=== PATIENT | female | born 1995 | race Caucasian/White ===

== ENCOUNTER 2017-05-14 19:16 | Emergency (ER) | payer BC ==
[2017-05-14 20:51] VITALS: BP 109/65
--- NOTE | 2017-05-14 21:04 | UC ---
Throat Pain/Nasal Pool HPI - HPI Summary HPI Summary: 21 YO FEMALE WITH SORE THROAT X 4 DAYS HAS FELT FEVERISH FATIGUE NASAL CONGESTION - History of Current Complaint Chief Complaint: UCGeneralIllness Stated Complaint: SORE THROAT Time Seen by Provider: 05/14/17 20:47 Hx Obtained From: Patient Onset/Duration: Gradual Onset, Lasting Days Severity: Moderate Pain Intensity: 4 Pain Scale Used: 0-10 Numeric Cough: None Associated Signs & Symptoms: Positive: Fever - ADIN - Allergies/Home Medications Allergies/Adverse Reactions: Allergies Allergy/AdvReac Type Severity Reaction Status Date / Time No Known Allergies Allergy Verified 05/14/17 20:50 Home Medications: Home Medications Norethin Acet & Estrad-Fe [Loestrin Fe 1.5/30 1.5-30 mg-Mcg] 1 tab PO DAILY [History Confirmed 05/14/17] PMH/Surg Hx/FS Hx/Imm Hx Previously Healthy: Yes - Surgical History Surgical History: Yes Surgery Procedure, Year, and Place: WISDOM TEETH 04/2014. NASAL RECONSTRUCTION SURGERY 03/2017 - Family History Known Family History: Positive: Hypertension - Social History Alcohol Use: Occasionally Substance Use Type: None Smoking Status (MU): Never Smoked Tobacco Review of Systems Constitutional: Fever - ADIN, Fatigue Skin: Negative Eyes: Negative ENT: Negative Respiratory: Negative Cardiovascular: Negative Gastrointestinal: Negative Genitourinary: Negative Motor: Negative Neurovascular: Negative Musculoskeletal: Negative Neurological: Negative Psychological: Negative Is Patient Immunocompromised?: No All Other Systems Reviewed And Are Negative: Yes Physical Exam Triage Information Reviewed: Yes Appearance: Well-Appearing, No Pain Distress, Well-Nourished Vital Signs: Initial Vital Signs Temp 98.7 F 05/14/17 20:44 Pulse 91 05/14/17 20:44 Resp 16 05/14/17 20:44 BP 109/65 05/14/17 20:44 Pulse Ox 100 05/14/17 20:44 Vital Signs Reviewed: Yes Eyes: Positive: Conjunctiva Clear ENT: Positive: Hearing grossly normal, Pharyngeal erythema, TMs normal. Negative: Nasal drainage, TM bulging, TM dull, TM red, Tonsillar swelling, Tonsillar exudate, Trismus, Muffled/hoarse voice Neck: Positive: Supple, Nontender, Enlarged Nodes @ - ANTERIOR CERVICAL Respiratory: Positive: Lungs clear, Normal breath sounds, No respiratory distress Cardiovascular: Positive: RRR, No Murmur, Pulses Normal Musculoskeletal: Positive: ROM Intact, No Edema Neurological: Positive: Alert Psychological Exam: Normal Skin Exam: Normal Throat Pain/Nasal Course/Dx - Differential Dx/Diagnosis Provider Diagnoses: ACUTE PHARYNGITIS...SUSPECT VIRAL ILLNESS Discharge - Discharge Plan Condition: Stable Disposition: HOME Patient Education Materials: Pharyngitis (ED) Referrals: Non Staff,Doctor [Primary Care Provider] - Additional Instructions: STREP TEST (-) TEST FOR MONO PENDING RECHECK IN 4 DAYS IF NOT BETTER REST/FLUIDS/ADVIL OR ALEVE IF NEEDED
[2017-05-15 11:44] LABS: EBV Response NO
[2017-05-15 11:59] LABS: Add Diff/Slide Review? Slide Review Added; Comments Flag Yes; Hematocrit 39 % (35-47); Hemoglobin 12.9 g/dl (12.0-16.0); Mean Corpuscular HGB Conc 34 g/dl (31-36); Mean Corpuscular Hemoglobin 28 pg (27-31); Mean Corpuscular Volume 85 fL (80-97); Mean Platelet Volume 10 um3 (7.4-10.4); Red Blood Count 4.55 10^6/ul (4.0-5.4); Red Cell Distribution Width 13 % (10.5-15); White Blood Count 5.8 10^3/ul (3.5-10.8)
[2017-05-15 12:14] LABS: Mono Internal Control QC Line Present
[2017-05-15 12:15] LABS: Manual Entry Verification BM
== END 2017-05-14 21:22 | disposition home or self-care (01) ==
LOC: UCCORT 19:16
DX: J02.9 Acute pharyngitis, unspecified (principal); R53.83 Other fatigue; R09.81 Nasal congestion
CPT/HCPCS: 36415; 85025; 86308; 87651; 99201; G0463

== ENCOUNTER 2017-12-26 19:05 | Emergency (ER) | payer BC ==
[2017-12-26 20:40] VITALS: BP 111/73
--- NOTE | 2017-12-26 20:55 | UC ---
UC General HPI - HPI Summary HPI Summary: pt has noted some sores in her mouth for about 2 weeks. she had a recent vaginal yeast infection and wants to be sure this is not yeast. she has no current GI symptoms but states had some GERD and ? PUD that was tx by her pcp in past. states gets canker sores often as does her dad. - History of Current Complaint Chief Complaint: UCGeneralIllness Stated Complaint: ORAL COMPLAINT Time Seen by Provider: 12/26/17 20:48 Hx Obtained From: Patient Hx Last Menstrual Period: 11/06/17 Onset/Duration: Gradual Onset Timing: Constant Pain Intensity: 0 Associated Signs & Symptoms: Negative: Abdominal Pain, Diarrhea, Nausea, Vomiting - Allergy/Home Medications Allergies/Adverse Reactions: Allergies Allergy/AdvReac Type Severity Reaction Status Date / Time No Known Allergies Allergy Verified 05/14/17 20:50 Home Medications: Home Medications Norgestimate-Ethinyl Estradiol [Ortho-Cyclen 28 Tablet] 1 each PO DAILY [History Confirmed 12/26/17] PMH/Surg Hx/FS Hx/Imm Hx GI/ History: Gastroesophageal Reflux - Surgical History Surgical History: Yes Surgery Procedure, Year, and Place: WISDOM TEETH 04/2014. NASAL RECONSTRUCTION SURGERY 03/2017 - Family History Known Family History: Positive: Hypertension - Social History Occupation: Student Lives: Dormitory/Roommates Alcohol Use: Occasionally Substance Use Type: None Smoking Status (MU): Never Smoked Tobacco Have You Smoked in the Last Year: No - Immunization History Vaccination Up to Date: Yes Review of Systems Constitutional: Negative Skin: Negative Eyes: Negative ENT: Other - mouth sores Respiratory: Negative Cardiovascular: Negative Gastrointestinal: Negative Genitourinary: Negative Motor: Negative Neurovascular: Negative Musculoskeletal: Negative Neurological: Negative Psychological: Negative Is Patient Immunocompromised?: No All Other Systems Reviewed And Are Negative: Yes Physical Exam Triage Information Reviewed: Yes Appearance: Well-Appearing Vital Signs: Initial Vital Signs Temp 99.1 F 12/26/17 20:34 Pulse 98 12/26/17 20:34 Resp 17 12/26/17 20:34 BP 111/73 12/26/17 20:34 Pulse Ox 100 12/26/17 20:34 Vital Signs Reviewed: Yes Eyes: Positive: Conjunctiva Clear ENT: Positive: TMs normal, Other - ulcerations to uvula, soft palate and L bucal mucosa. Negative: Nasal congestion, Nasal drainage Neck: Positive: Supple, Nontender, No Lymphadenopathy Respiratory: Positive: Lungs clear, Normal breath sounds Cardiovascular: Positive: RRR, No Murmur Abdomen Description: Positive: Nontender, No Organomegaly, Soft. Negative: Distended, Guarding Bowel Sounds: Positive: Present Musculoskeletal: Positive: ROM Intact Neurological: Positive: Alert Psychological: Positive: Age Appropriate Behavior Skin Exam: Normal Course/Dx - Course Course Of Treatment: no concern for yeast infection. exam c/w viral infection. doubt IBD gien no GI symptoms. will tx ith magic mouth wash. - Differential Dx - Multi-Symptom Provider Diagnoses: GINGIVOSTOMATITIS Discharge - Sign-Out/Discharge Documenting (check all that apply): Discharge/Admit/Transfer - Discharge Plan Condition: Stable Disposition: HOME Prescriptions: Magic Mouth Was-ITALO/MAAL/LIDO* 5 ml SWISH SPIT QID #120 ml Patient Education Materials: Gingivostomatitis (ED) Referrals: No Primary Care Phys,NOPCP [Primary Care Provider] - Additional Instructions: FOLLOW UP [facility] IN 5 DAYS FOR A RECEHCK OR SOONER IF WORSE. - Billing Disposition and Condition Condition: STABLE Disposition: HOME
== END 2017-12-26 21:05 | disposition home or self-care (01) ==
LOC: UCCORT 19:05
DX: K05.10 Chronic gingivitis, plaque induced (principal)
CPT/HCPCS: 99212; G0463

== ENCOUNTER 2019-07-15 18:10 | Emergency (ER) | payer BC ==
--- OUTSIDE RECORDS SUMMARY | 2019-07-15 18:34 | XMS REPORT | Continuity of Care Document ---
:1995 External Reference #:[id number] Author Name Daniela Sommers NP Address [address] [place] [address] Care Team Providers Name Role Phone Pamella Estrada M.D. Care Team Information Workforce Development Specialist [phone] Problems Description No Information Available Social History Type Date Description Comments Sex Unknown Cigarette Use Nonsmoker ETOH Use Rarely consumes alcohol Recreational Drug Use Denies Drug Use Allergies, Adverse Reactions, Alerts Description No Known Drug Allergies Medications Active Medications SIG Qnty Indications Ordering Provider Date 12 Hour Nasal Relief 2 sprays each 30ml H69.80 Matthieu, 05/06/2019 Sultana nostril every 12 Daniela SCREEN MAKER 0.05% Solution hours for 3 days than off 3 days repeat for 2 weeks Simply Saline use 3-4 times a 1units H69.80 Matthieu, 05/06/2019 0.9% day Daniela, SCREEN MAKER Aerosol Ibuprofen 1 tab q 6 hrs for 30tabs H69.80 Matthieu, 05/06/2019 600mg Tablets pain Daniela, SCREEN MAKER Biotin Unknown Tablets Cryselle-28 1 by mouth every Unknown day 0.3-30mg-mcg Tablets Immunizations Description No Information Available Vital Signs Date Vital Result Comment 03/31/2018 9:07am BP Systolic 100 mmHg BP Diastolic 60 mmHg Respiratory Rate 16 /min Height 68 inches 5'8" Weight 125.00 lb BMI (Body Mass Index) 19.0 kg/m2 04/16/2017 10:15am BP Systolic 108 mmHg BP Diastolic 64 mmHg Heart Rate 68 /min Respiratory Rate 16 /min Height 67 inches 5'7" Results Description No Information Available Procedures Description No Information Available Medical Devices Description No Information Available Encounters Type Date Location Provider Dx Diagnosis Office Visit 05/27/2019 [facility] Matthieu J34.2 Deviated nasal 11:00a 210 Daniela, SCREEN MAKER septum H69.80 Oth disrd of Eustachian tube, unspecified ear Office Visit 05/06/2019 [facility] Matthieu J34.2 Deviated nasal 11:15a 210 Daniela, SCREEN MAKER septum H69.80 Oth disrd of Eustachian tube, unspecified ear Assessments Date Code Description Provider 05/27/2019 J34.2 Deviated nasal septum Daniela Sommers, SCREEN MAKER 05/27/2019 H69.80 Other specified disorders of TramDaniela Louis, SCREEN MAKER Eustachian tube, unspecified ear 05/06/2019 J34.2 Deviated nasal septum Daniela Sommers, SCREEN MAKER 05/06/2019 H69.80 Other specified disorders of TramDaniela Louis, SCREEN MAKER Eustachian tube, unspecified ear Plan of Treatment 05/06/2019 - Matthieu Daniela, NPJ34.2 Deviated nasal rdjxvsS02.80 Other specified disorders of Eustachian tube, unspecified earNew Medication:12 Hour Nasal Relief Sultana 0.05 % - 2 sprays each nostril every 12 hours for 3 days than off 3 days repeat for 2 weeksSimply Saline 0.9 % - use 3-4 times a dayIbuprofen 600 mg - 1 tab q 6 hrs for painComments:Patient has symptoms of eustachian tube dysfunction and TMJ. I discussed avoiding chewy foods, usingibuprofen and warm moist heating pads for TMJ syndrome. For eustachian tube dysfunction, I discussed using afrin of cyclic basis, nasal steroid BID, saline and autoinflation exercises. Patient will follow up in 2-6 weeks. Functional Status Description No Information Available Mental Status Description No Information Available Referrals Description No Information Available
--- OUTSIDE RECORDS SUMMARY | 2019-07-15 18:34 | XMS REPORT | Continuity of Care Document ---
:1995 External Reference #:[id number] Author Name Chelsey Coughlin NP Address [address] [place] [address] Care Team Providers Name Role Phone Yes Care Team Information Advertising Sales Representative Unavailable Problems Description No Information Available Social History Type Date Description Comments Sex Female Tobacco Use Reviewed: 11/24/17 Never Smoked Cigars Tobacco Use Reviewed: 11/24/17 Never Smoked A Pipe Smoking Status Reviewed: 11/24/17 Never Smoked A Pipe Tobacco Use Reviewed: 11/24/17 Never Used Smokeless Tobacco ETOH Use Occasionally consumes alcohol Recreational Drug Use Denies Drug Use Tobacco Use Start: Unknown Patient has never smoked Recreational Drug Use Teaching provided regarding Naloxone/Narcan Training Available At [facility] [place] Tattoo/Piercing Negative For Tattoo Allergies, Adverse Reactions, Alerts Description No Known Drug Allergies Medications Active Medications SIG Qnty Indications Ordering Provider Date Multi Vitamin Daily Unknown Cryselle-28 one tab by mouth Unknown daily as directed 0.3-30mg-mcg Tablets Medications Administered in Office Medication SIG Qnty Indications Ordering Provider Date Contraceptive Pills Control Rosangela Echols NP 11/24/2017 Injection Immunizations Description No Information Available Vital Signs Date Vital Result Comment 06/01/2019 11:39am Body Temperature 98.2 F BP Systolic 124 mmHg BP Diastolic 62 mmHg Heart Rate 73 /min Height 67 inches 5'7" Weight 127.00 lb BMI (Body Mass Index) 19.9 kg/m2 11/24/2017 2:59pm BP Systolic 114 mmHg BP Diastolic 80 mmHg Weight 115.00 lb Results Test Date Facility Test Result H/L Range Note Laboratory test finding 06/01/2019 [facility] HIV Rapid... nonreactive Hep C Rapid Test nonreactive Wet Prep.... 06/01/2019 [facility] WBC Smear 0 Clue Cells Vag Fluid Wet Prep 0 Leeanne Wet Prep 0 Lactobacillus Wet Prep many Whiff Wet Prep neg. Bacteria Wet Prep n/a PH Wet Prep 4.5 Misc Other Test no trich seen Procedures Description No Information Available Medical Devices Description No Information Available Encounters Type Date Location Provider Dx Diagnosis Office Visit 06/01/2019 [facility] Chelsey Coughlin NP Z11.3 Encntr screen for 11:30a infections w sexl mode of transmiss Z30.41 Encounter for surveillance of contraceptive pills Z11.4 Encounter for screening for human immunodeficiency virus Z11.59 Encounter for screening for other viral diseases Assessments Date Code Description Provider 06/01/2019 Z11.3 Encounter for screening for infections with a Chelsey Coughlin NP predominantly sexual mode of transmission 06/01/2019 Z30.41 Encounter for surveillance of contraceptive Chelsey Coughlin NP pills 06/01/2019 Z11.4 Encounter for screening for human Chelsey Coughlin NP immunodeficiency virus [HIV] 06/01/2019 Z11.59 Encounter for screening for other viral diseases Chelsey Coughlin NP Plan of Treatment 06/01/2019 - Chelsey Coughlin NPZ11.3 Encounter for screening for infections with a predominantly sexual mode of transmissionComments:Reviewed STD risks and prevention with patient. Patient states understanding. Condoms given to patient.Follow up:prnZ30.41 Encounter for surveillance of contraceptive pillsComments:Patient to continue on ocp . Reviewed use of, side effects and precautions with patient who states understanding. Patient is aware of ECP. She plans to f/u with home FINANCIAL SERVICES DIRECTOR for annual and bcp refills.Z11.4 Encounter for screening for human immunodeficiency virus [HIV]Z11.59 Encounter for screening for other viral diseases Functional Status Description No Information Available Mental Status Description No Information Available Referrals Description No Information Available
[2019-07-15 18:39] VITALS: BP 105/69
--- NOTE | 2019-07-15 18:52 | UC ---
Respiratory Complaint HPI - HPI Summary HPI Summary: Patient presents to urgent care with 2-1/2 weeks of progressive cough. Patient states she is bringing up sputum remains occasionally blood-tinged. Patient states she gets very winded with walking and feels like she has to cough. Patient denies fevers or chills. Patient does report mild fatigue. No trauma. Patient states initially she had some head congestion but that has mostly improved. No sore throat. No ear pain. Patient's been taking Mucinex but no other medications. Patient does not have a history of asthma or any other lung disease. Patient states no pertinent. Patient's most concerned because she is talking on international conference on Friday and is concerned that her coughing will interfere. Patient's medications reviewed this visit - History of Current Complaint Chief Complaint: UCGeneralIllness Stated Complaint: COUGH Time Seen by Provider: 07/15/19 18:42 Hx Obtained From: Patient Hx Last Menstrual Period: 07/10/19 ?: No Onset/Duration: Gradual Onset, Lasting Weeks Pain Intensity: 0 - Allergies/Home Medications Allergies/Adverse Reactions: Allergies Allergy/AdvReac Type Severity Reaction Status Date / Time No Known Allergies Allergy Verified 07/15/19 18:39 PMH/Surg Hx/FS Hx/Imm Hx Previously Healthy: Yes - Surgical History Surgical History: Yes Surgery Procedure, Year, and Place: WISDOM TEETH 04/2014. NASAL RECONSTRUCTION SURGERY 03/2017 - Family History Known Family History: Positive: Hypertension, Non-Contributory - Social History Occupation: Student Lives: Dormitory/Roommates Alcohol Use: Occasionally Substance Use Type: None Smoking Status (MU): Never Smoked Tobacco Have You Smoked in the Last Year: No - Immunization History Vaccination Up to Date: Yes Review of Systems All Other Systems Reviewed And Are Negative: Yes Constitutional: Positive: Fatigue Skin: Positive: Negative Eyes: Positive: Negative ENT: Positive: Negative Respiratory: Positive: Shortness Of Breath - With walking and coughing paroxysm , Cough Cardiovascular: Positive: Negative Gastrointestinal: Positive: Negative Genitourinary: Positive: Negative Motor: Positive: Negative Neurovascular: Positive: Negative Musculoskeletal: Positive: Negative Physical Exam - Summary Physical Exam Summary: Vital Signs Reviewed: Yes A+Ox3, pt with intermittent coughing during conversation Eyes: Conjunctiva Clear, BERTRAM. EOM intact and full ENT: Hearing grossly normal TM x 2 clear, mmoist, uvula midline, no exudate, no erythema Neck: Positive: Supple Respiratory: Positive: No respiratory distress, No accessory muscle use, few scattered wheeze no retractions sentences interrupted with cough Cardiovascular: RRR nl s1, s2 no m/r CBT <2 sec abd soft + BS nt/nd no guarding, no distension Musculoskeletal Exam: DIEHL x 4 without difficulty Strength Intact, ROM Intact Neurological: Positive: Alert, + sensation throughout Psychological: Positive: Normal Response To examiner Skin: Positive: no rash, no ecchymosis Triage Information Reviewed: Yes Vital Signs: Initial Vital Signs Temp 98.9 F 07/15/19 18:33 Pulse 82 07/15/19 18:33 Resp 16 07/15/19 18:33 BP 105/69 07/15/19 18:33 Pulse Ox 97 07/15/19 18:33 Re-Evaluation - Re-Evaluation First Eval Change: Improved - Pt states feels markedly improved following neb lungs clear will Rx: Abx, Albuterol MDI, tessalon bertrames Pt states get yeast infection - diflucan hydrate motrin/apap secretion precaution Respiratory Course/Dx - Course Course Of Treatment: Patient presents to urgent care with 20 Weeks of progressive cough. Patient states is productive sometimes of green to blood-tinged sputum. Patient states she feels short of breath with walking, coughing gets worse. Patient has taken Mucinex but no other glzy-isp-unftwro cough medication. Patient does not have a history of lung disease. Patient without a fevers. Patient's travel. Patient did go to; whether several sick contacts. On exam vital signs are stable. Patient with some expiratory diffuse wheezing and persistent cough and rubs. The spray patient without any increased work of breathing or retractions. We'll do chest x-ray DuoNeb and reassessed. Anticipate antibiotics MDI and possibly prednisone. Patient states understanding and agreement with plan. We'll reassess after neb. - Differential Dx/Diagnosis Provider Diagnosis: Acute bronchitis Discharge ED - Sign-Out/Discharge Documenting (check all that apply): Patient Departure All imaging exams completed and their final reports reviewed: No - Discharge Plan Condition: Stable Disposition: HOME Prescriptions: Albuterol HFA INHALER* [Ventolin HFA Inhaler*] 2 puff INH Q4H PRN #1 mdi PRN Reason: wheeze Amoxicillin PO (*) [Amoxicillin 875 MG (*)] 875 mg PO BID #20 tab Benzonatate CAP* [Tessalon 100 MG CAP*] 100 mg PO TID PRN #30 cap PRN Reason: Cough Fluconazole [Diflucan 150 MG (NF)] 150 mg PO ONCE PRN #1 tab PRN Reason: vaginal yeast infection Inhaler, Assist Devices [Aerochamber Mv] 1 each PO Q4HR #1 spacer Referrals: No Primary Care Phys,NOPCP [Primary Care Provider] - [facility] [Outside] Additional Instructions: - Stay well hydrated. Drink plenty of non-alcoholic, non-caffinated beverages. - Alternate ibuprofen (Advil, Motrin) 600mg and Tylenol every 3 hours for pain or fever. Take with food. Do NOT take for more than 4-5 days. - These infections are spread by secretions - do NOT share eating or drinking utensils - clean items you share with other people such as cell phones, computer mouse, TV remote, computer tablets,etc. Once you have been on antibiotics for 2 days, change your toothbrush and your pillowcase. - get plenty of restful sleep - humidify the air in the room where you sleep - boil water, run a hot steam shower, vaporizer, cups of water by heat register - okay to take over the counter decongestant and cough medication - Take antibiotics as prescribed - okay to take Tessalon pearls as prescribed for coughing --Use your albuterol puffer - 2 puffs every 4 hours for the next 2 days - then as needed - get plenty of restful sleep. - contact your doctor or return with questions or concerns - you have been given a prescription for the treatment of vaginal yeast infection - okay to take if you develop an infection from the antibiotics As discussed, your radiograph was reviewed by the provider that treated you tonight. It will be read by a radiologist tomorrow morning. If there is a finding other than that discussed with you today, you will receive a call from a care provider. - Billing Disposition and Condition Condition: STABLE Disposition: Home
[2019-07-15] MEDS ORDERED: Albuterol/Ipratropium NEB.SOL* Albuterol 2.5 MG/Ipratropium 0.5 MG 3 ML INH ONE (18:53)
--- NOTE | 2019-07-16 10:27 | ED ---
Progress - Progress Note Progress Note: xray: NAD Re-Evaluation - Re-Evaluation First Eval Change: Improved - Pt states feels markedly improved following neb lungs clear will Rx: Abx, Albuterol MDI, quinn medina Pt states get yeast infection - diflucan hydrate motrin/apap secretion precaution Course/Dx - Diagnoses Provider Diagnoses: Acute bronchitis Discharge ED - Sign-Out/Discharge Documenting (check all that apply): Patient Departure All imaging exams completed and their final reports reviewed: Yes - Discharge Plan Condition: Stable Disposition: HOME Prescriptions: Albuterol HFA INHALER* [Ventolin HFA Inhaler*] 2 puff INH Q4H PRN #1 mdi PRN Reason: wheeze Amoxicillin PO (*) [Amoxicillin 875 MG (*)] 875 mg PO BID #20 tab Benzonatate CAP* [Tessalon 100 MG CAP*] 100 mg PO TID PRN #30 cap PRN Reason: Cough Fluconazole [Diflucan 150 MG (NF)] 150 mg PO ONCE PRN #1 tab PRN Reason: vaginal yeast infection Inhaler, Assist Devices [Aerochamber Mv] 1 each PO Q4HR #1 spacer Referrals: [facility] [Outside] No Primary Care Phys,NOPCP [Primary Care Provider] - Additional Instructions: - Stay well hydrated. Drink plenty of non-alcoholic, non-caffinated beverages. - Alternate ibuprofen (Advil, Motrin) 600mg and Tylenol every 3 hours for pain or fever. Take with food. Do NOT take for more than 4-5 days. - These infections are spread by secretions - do NOT share eating or drinking utensils - clean items you share with other people such as cell phones, computer mouse, TV remote, computer tablets,etc. Once you have been on antibiotics for 2 days, change your toothbrush and your pillowcase. - get plenty of restful sleep - humidify the air in the room where you sleep - boil water, run a hot steam shower, vaporizer, cups of water by heat register - okay to take over the counter decongestant and cough medication - Take antibiotics as prescribed - okay to take Tessalon pearls as prescribed for coughing --Use your albuterol puffer - 2 puffs every 4 hours for the next 2 days - then as needed - get plenty of restful sleep. - contact your doctor or return with questions or concerns - you have been given a prescription for the treatment of vaginal yeast infection - okay to take if you develop an infection from the antibiotics As discussed, your radiograph was reviewed by the provider that treated you tonight. It will be read by a radiologist tomorrow morning. If there is a finding other than that discussed with you today, you will receive a call from a care provider. - Billing Disposition and Condition Condition: STABLE Disposition: Home
== END 2019-07-15 19:40 | disposition home or self-care (01) ==
LOC: UCCORT 18:10
DX: J20.9 Acute bronchitis, unspecified (principal); R53.83 Other fatigue
CPT/HCPCS: 71046; 99212; A9270-GY; G0463